=== PATIENT | female | born 1950 | race Caucasian/White ===

== ENCOUNTER 2017-04-21 12:36 | Emergency (ER) | payer MEDICARE, OTHER ==
[2017-04-21 12:58] VITALS: BP 136/70
[2017-04-21] MEDS ORDERED: Ketorolac 60 MG/2 ML SDV IM ONE (13:13)
--- NOTE | 2017-04-21 13:18 | EDM.PDOC ---
ED HPI GENERAL MEDICAL PROBLEM - General Chief Complaint: Head Injury Stated Complaint: FALL, FACIAL SCRAPES,CONTUSIONS Time Seen by Provider: 04/21/17 12:57 Source of Information: Reports: Patient, RN Notes Reviewed History Limitations: Reports: No Limitations - History of Present Illness INITIAL COMMENTS - FREE TEXT/NARRATIVE: 66-year-old female presents emergency department day following trauma, she had a fall to the ground where she tripped over the curb landed predominantly on the right side of her face. This incident occurred about an hour and a half ago there was no loss of consciousness no vomiting she is complaining of neck pain and facial pain predominately around her orbits and her jaw on the right side. Right Face Pain Score (Numeric/FACES): 7 - Related Data Allergies Allergy/AdvReac Type Severity Reaction Status Date / Time Penicillins Allergy Severe Hives Verified 06/13/13 11:11 amoxicillin [Amoxicillin] Allergy Rash Verified 02/01/14 14:06 Sulfa (Sulfonamide Allergy Rash Verified 02/01/14 14:06 Antibiotics) Tetracyclines Allergy Rash Verified 02/01/14 14:06 Home Meds: Home Meds Ca Cmb No.1/Vit D3/B-6/FA/B12 [Vitamin D3 1,000 Unit] 1 each PO DAILY 06/13/13 [ History] Fish Oil/[place]-3 Fatty Acids [Fish Oil] 1 each PO DAILY 06/13/13 [History] Escitalopram [Lexapro] 10 mg PO DAILY 04/19/16 [History] Hydrochlorothiazide 25 mg PO DAILY 04/19/16 [History] Psyllium Husk 1 gm PO DAILY 04/19/16 [History] Diphenoxylate HCl/Atropine [Diphenoxylate-Atrop 2.5-0.025] 1 tab PO DAILY [History] Past Medical History HEENT History: Reports: Impaired Vision Cardiovascular History: Reports: High Cholesterol Gastrointestinal History: Reports: GERD 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: , Spontaneous Musculoskeletal History: Reports: Fracture, Other (See Below) Other Musculoskeletal History: broke right arm july 2012; SI injections x2 Psychiatric History: Reports: Anxiety - Infectious Disease History Infectious Disease History: Reports: Chicken Pox, Measles, Shingles - Past Surgical History GI Surgical History: Reports: Colonoscopy, EGD Female Surgical History: Reports: Breast Biopsy, Tubal Ligation Social & Family History - Family History Family Medical History: Noncontributory - Tobacco Use Smoking Status *Q: Never Smoker Second Hand Smoke Exposure: No - Caffeine Use Caffeine Use: Reports: Coffee - Alcohol Use Days Per Week of Alcohol Use: 0 - Recreational Drug Use Recreational Drug Use: No ED ROS GENERAL - Review of Systems Review Of Systems: See Below Constitutional: Reports: No Symptoms HEENT: Reports: Nosebleed, Nose Pain, Other (Facial pain) Respiratory: Reports: No Symptoms Cardiovascular: Reports: No Symptoms GI/Abdominal: Reports: No Symptoms : Reports: No Symptoms Musculoskeletal: Reports: No Symptoms Skin: Reports: No Symptoms Neurological: Reports: No Symptoms ED EXAM, HEAD INJURY - Physical Exam Exam: See Below Text/Narrative:: General: Female, not in any distress, alert and oriented x3 HEENT: head is trauma is appreciated with abrasions under the right eye she does have an abrasion underneath the left naris and abrasion with edema and hematoma appreciated on the lower right portion lateral aspect of the lip normocephalic, eyes pupils equal round reactive to light, sclera clear no conjunctivitis appreciated, extraocular eye movements are intact. Ears tympanic membranes clear and burgess landmarks and light reflex are present bilaterally canals are clear. Nose no septal deviation, nares are clear, dried blood present. Mouth mucosa is moist and pink no erythema or exudate noted in soft palate, tongue is midline uvula is midline, dentition is intact. Neck: Supple no thyromegaly no tracheal deviation. There is tenderness to palpation both spinally and paraspinally Nodes: Cervical nodes subclavicular nodes nontender no palpable lymphadenopathy noted. Lungs: clear to auscultation bilaterally with symmetrical respirations, no adventitious noise appreciated. CV: Regular rate and rhythm S1 and S2 appreciated no murmurs rubs or gallops noted. Abdomen: Soft, nontender, no palpable masses or organomegaly appreciated, no distention no guarding bowel sounds are present. Neuro: Cranial nerves II through XII grossly intact Skin: Warm and dry, intact Extremities: No lower extremity edema appreciated, no tenderness at the shoulders elbows wrists bilaterally no tenderness at the pelvis, no tenderness at the knees or ankles bilaterally Course - Vital Signs Last Recorded V/S: Last Vital Signs Temp 97.2 F 04/21/17 12:58 Pulse 56 L 04/21/17 12:58 Resp 16 04/21/17 12:58 BP 136/70 04/21/17 12:58 Pulse Ox 98 04/21/17 12:58 - Orders/Labs/Meds Meds: Medications Discontinued Medications Generic Name Dose Route Start Last Admin Trade Name Casie PRN Reason Stop Dose Admin Ketorolac Tromethamine 60 mg 04/21/17 13:13 04/21/17 13:47 Toradol IM 04/21/17 13:14 60 mg ONETIME ONE Administration Departure - Departure Time of Disposition: 14:16 Disposition: Home, Self-Care 01 Condition: Good Clinical Impression: Contusion of face Qualifiers: Encounter type: initial encounter Qualified Code(s): S00.83XA - Contusion of other part of head, initial encounter - Discharge Information Referrals: Akua Lovelace PA [Primary Care Provider] - Forms: ED Department Discharge Additional Instructions: Use ibuprofen as needed for pain control, Please followup with your primary care provider in 3-5 days if not better, please call return to the emergency department with worsening of symptoms. - Assessment/Plan Plan: Assessment Acuity = acute Site and laterality = facial bone contusion right side Etiology = secondary to fall Manifestations = none Location of injury = Home Lab values = CT scan head, neck, facial bones all negative for any fracture Plan She had significant pain relief with Toradol provided she is going to use ibuprofen as needed follow-up primary care in 3-5 days if no improvement Patient was in agreement with the plan all questions were answered, they were instructed to return to the emergency department or call for worsening symptoms. This note was dictated using [employer] voice recognition software please call with any questions.
--- NOTE | 2017-04-21 13:53 | CT ---
Head wo Cont INDICATION: Trauma. COMPARISON: CT 02/22/2009. FINDINGS: No acute intracranial hemorrhage, mass, or edema. Mild generalized cerebral and cerebellar volume loss. Remainder unremarkable. IMPRESSION: No acute intracranial abnormality.
--- NOTE | 2017-04-21 14:01 | CT ---
Max Facial Sinus wo Cont Total DLP 1337 mGycm. INDICATION: pain, trauma COMPARISON: None. FINDINGS: No acute fracture. Temporomandibular joints are normally located. Trace mucosal thickening ethmoid sinuses anteriorly. Mastoid air cells are clear. Orbits are unremarkable. Minimal right perio rbital soft tissue swelling. Exam otherwise unremarkable. IMPRESSION: No acute fracture.
--- NOTE | 2017-04-21 14:03 | CT ---
Cervical Spine wo Cont INDICATION: Trauma. COMPARISON: None FINDINGS: No acute fracture or malalignment. Slight reversal of normal cervical lordosis. Mild multil evel degenerative changes including degenerative disc disease and uncovertebral and facet hypertrophy without significant neural foraminal or spinal canal narrowing. Soft tissues are negative. Remainder unremarkable. IMPRESSION: No acute fracture or malalignment.
== END 2017-04-21 14:21 | disposition home or self-care (01) ==
LOC: JP.ED 12:36
DX: S00.83XA Contusion of other part of head, initial encounter (principal); E78.00 Pure hypercholesterolemia, unspecified; K21.9 Gastro-esophageal reflux disease without esophagitis; F41.9 Anxiety disorder, unspecified; Z98.51 Tubal ligation status; Z98.890 Other specified postprocedural states; Z79.899 Other long term (current) drug therapy; Z88.0 Allergy status to penicillin; Z88.1 Allergy status to other antibiotic agents; Z88.2 Allergy status to sulfonamides; W01.0XXA Fall on same level from slipping, tripping and stumbling without subsequent striking against object, initial encounter
CPT/HCPCS: 70450; 70486; 72125; 96372; 99284; J1885

== ENCOUNTER 2018-09-07 14:08 | Emergency (ER) | payer MEDICARE ==
[2018-09-07 14:41] VITALS: BP 120/40
[2018-09-07] MEDS ORDERED: Meclizine 25 MG Tab PO ONE (15:04)
[2018-09-07] MEDS ORDERED: Ondansetron 4 MG Tab.DIS PO ONE (15:04)
--- NOTE | 2018-09-07 15:09 | EDM.PDOC ---
ED HPI GENERAL MEDICAL PROBLEM - General Chief Complaint: General Stated Complaint: SEVERE DIZZINESS, NAUSEA Time Seen by Provider: 09/07/18 14:55 Source of Information: Reports: Patient, RN Notes Reviewed History Limitations: Reports: No Limitations - History of Present Illness INITIAL COMMENTS - FREE TEXT/NARRATIVE: 67-year-old female presents to the emergency department today with complaint of dizziness, she states had the symptoms for about 48 hours it will wax and wane she describes it as room spinning and she is having difficulty ambulating feels like she is going to lose her balance, she is nauseated no fevers no shortness of breath or chest pain - Related Data Allergies Allergy/AdvReac Type Severity Reaction Status Date / Time Penicillins Allergy Severe Hives Verified 09/07/18 14:35 amoxicillin [Amoxicillin] Allergy Rash Verified 09/07/18 14:35 Sulfa (Sulfonamide Allergy Rash Verified 09/07/18 14:35 Antibiotics) Tetracyclines Allergy Rash Verified 09/07/18 14:35 Home Meds: Home Meds Ca Cmb No.1/Vit D3/B-6/FA/B12 [Vitamin D3 1,000 Unit] 1 each PO DAILY 06/13/13 [ History] Fish Oil/[place]-3 Fatty Acids [Fish Oil] 1 each PO DAILY 06/13/13 [History] Escitalopram [Lexapro] 10 mg PO DAILY 04/19/16 [History] Psyllium Husk 1 gm PO DAILY 04/19/16 [History] Diphenoxylate HCl/Atropine [Diphenoxylate-Atrop 2.5-0.025] 1 tab PO DAILY [History] Cholestyramine/Sucrose [Cholestyramine] 4 gm PO DAILY 09/07/18 [History] Past Medical History HEENT History: Reports: Impaired Vision Cardiovascular History: Reports: High Cholesterol Gastrointestinal History: Reports: GERD 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: , Spontaneous Musculoskeletal History: Reports: Fracture, Other (See Below) Other Musculoskeletal History: broke right arm july 2012; SI injections x2 Psychiatric History: Reports: Anxiety - Infectious Disease History Infectious Disease History: Reports: Chicken Pox, Measles, Mumps, Shingles - Past Surgical History Head Surgeries/Procedures: Reports: None HEENT Surgical History: Reports: Tonsillectomy Cardiovascular Surgical History: Reports: None GI Surgical History: Reports: Colonoscopy, EGD Female Surgical History: Reports: Breast Biopsy, Tubal Ligation Musculoskeletal Surgical History: Reports: None Dermatological Surgical History: Reports: None Social & Family History - Family History Family Medical History: Noncontributory - Tobacco Use Smoking Status *Q: Former Smoker Used Tobacco, but Quit: Yes Month/Year Tobacco Last Used: 1988 Second Hand Smoke Exposure: No - Caffeine Use Caffeine Use: Reports: Coffee - Recreational Drug Use Recreational Drug Use: No ED ROS GENERAL - Review of Systems Review Of Systems: See Below Constitutional: Reports: No Symptoms HEENT: Reports: Vertigo Respiratory: Reports: No Symptoms Cardiovascular: Reports: No Symptoms GI/Abdominal: Reports: Nausea : Reports: No Symptoms Musculoskeletal: Reports: No Symptoms Skin: Reports: No Symptoms Neurological: Reports: Dizziness ED EXAM, GENERAL - Physical Exam Exam: See Below Free Text/Narrative:: General: [ obease male, not in any distress], alert and oriented x3 HEENT: head is atraumatic normocephalic, eyes pupils equal round reactive to light, sclera clear no conjunctivitis appreciated. Ears tympanic membranes clear and burgess landmarks and light reflex are present bilaterally canals are clear. Nose no septal deviation, nares are clear, no blood present. Mouth mucosa is moist and pink no erythema or exudate noted in soft palate, tongue is midline uvula is midline, dentition is intact. Neck: Supple no thyromegaly no tracheal deviation. Nodes: Cervical nodes subclavicular nodes nontender no palpable lymphadenopathy noted. Lungs: clear to auscultation bilaterally with symmetrical respirations, no adventitious noise appreciated. CV: Regular rate and rhythm S1 and S2 appreciated no murmurs rubs or gallops noted. Cranial nerves II test with pupillary light reflex 4 mm to 2 mm bilaterally, CN III test pupillary constriction, lid elevation and eye abduction bilaterally, CN IV downward movement of eyes bilaterally, CN V good jaw movement, CN lateral deviation of the eyes bilaterally to finger movement, CN VII symmetrical smile shows teeth without difficulty, CN VIII pass finger rub to ears bilaterally, CN IX adequate voice and tone, CN X adequate voice and tone no difficulty swallowing, CN XI can shrug shoulders without difficulty, CN XII can stick tongue out without difficulty, cranial nerves II to XII intact as tested, power is 5 out 5 in upper and lower extremities, no dysdiadochokinesis , , has adequate gait but feels unsteady and starts to shift to a wide-based gait. Head impulse test: Negative loss of fixation with corrective saccades when head turned to the bilateral Nystagmus: unidirectional, horizontal 2 beats of horizontal nystagmus Skew deviation: grossly absent Course - Vital Signs Last Recorded V/S: Last Vital Signs Temp 96.8 F 09/07/18 14:38 Pulse 58 L 09/07/18 14:38 Resp 12 09/07/18 14:38 BP 120/40 L 09/07/18 14:38 Pulse Ox 97 09/07/18 14:38 - Orders/Labs/Meds Orders: Active Orders 24 hr Category Date Time Status Peripheral IV Care [RC] . DIRECTED Care 09/07/18 15:18 Active Ang Head [CT] Stat Exams 09/07/18 15:04 Ordered Iopamidol [Isovue-370 (76%)] Med 09/07/18 15:30 Active 100 ml IV . DIRECTED Sodium Chloride 0.9% [Normal Saline] 1,000 ml Med 09/07/18 15:30 Active IV ASDIRECTED Sodium Chloride 0.9% [Normal Saline] 100 ml Med 09/07/18 15:30 Active IV ASDIRECTED Sodium Chloride 0.9% [Saline Flush] Med 09/07/18 15:18 Active 10 ml FLUSH ASDIRECTED PRN Peripheral IV Insertion Adult [OM.PC] Urgent Oth 09/07/18 15:18 Ordered Medication Orders Sodium Chloride (Normal Saline) 1,000 mls @ 500 mls/hr IV ASDIRECTED CHANDANA Last Admin: 09/07/18 15:59 Dose: 500 mls/hr Sodium Chloride (Normal Saline) 100 mls @ 3 mls/sec IV ASDIRECTED CHANDANA Last Admin: 09/07/18 15:59 Dose: 3 mls/sec Iopamidol (Isovue-370 (76%)) 100 ml IV . DIRECTED CHANDANA Last Admin: 09/07/18 15:59 Dose: 100 ml Sodium Chloride (Saline Flush) 10 ml FLUSH ASDIRECTED PRN PRN Reason: Keep Vein Open Labs: Laboratory Tests 09/07/18 09/07/18 Range/Units 15:15 15:15 WBC 7.8 (4.5-11.0) K/uL RBC 4.21 (3.30-5.50) M/uL Hgb 12.5 (12.0-15.0) g/dL Hct 38.6 (36.0-48.0) % MCV 92 (80-98) fL MCH 30 (27-31) pg MCHC 32 (32-36) % Plt Count 310 (150-400) K/uL Neut % (Auto) 44 (36-66) % Lymph % (Auto) 46 H (24-44) % [place] % (Auto) 7 H (2-6) % Eos % (Auto) 3 (2-4) % Baso % (Auto) 1 (0-1) % Sodium 142 (140-148) mmol/L Potassium 4.0 (3.6-5.2) mmol/L Chloride 105 (100-108) mmol/L Carbon Dioxide 30 (21-32) mmol/L Anion Gap 7.2 (5.0-14.0) mmol/L BUN 11 (7-18) mg/dL Creatinine 0.7 (0.6-1.0) mg/dL Est Cr Clr Drug Dosing 70.18 mL/min Estimated GFR (MDRD) > 60 (>60) Glucose 101 (74-106) mg/dL Calcium 9.2 (8.5-10.1) mg/dL Meds: Medications Generic Name Dose Route Start Last Admin Trade Name Freq PRN Reason Stop Dose Admin Sodium Chloride 1,000 mls @ 500 mls/hr 09/07/18 15:30 09/07/18 15:59 Normal Saline IV 500 mls/hr ASDIRECTED CHANDANA Administration Sodium Chloride 100 mls @ 3 mls/sec 09/07/18 15:30 09/07/18 15:59 Normal Saline IV 3 mls/sec ASDIRECTED CHANDANA Administration Iopamidol 100 ml 09/07/18 15:30 09/07/18 15:59 Isovue-370 (76%) IV 100 ml . DIRECTED CHANDANA Administration Sodium Chloride 10 ml 09/07/18 15:18 Saline Flush FLUSH ASDIRECTED PRN Keep Vein Open Discontinued Medications Generic Name Dose Route Start Last Admin Trade Name Freq PRN Reason Stop Dose Admin Meclizine HCl 25 mg 09/07/18 15:04 09/07/18 15:58 Antivert PO 09/07/18 15:05 25 mg ONETIME ONE Administration Ondansetron HCl 4 mg 09/07/18 15:04 09/07/18 15:58 Zofran Odt PO 09/07/18 15:05 4 mg ONETIME ONE Administration Sodium Chloride 10 ml 09/07/18 15:23 09/07/18 15:30 Saline Flush FLUSH 09/07/18 15:24 10 ml ONETIME ONE Administration Departure - Departure Time of Disposition: 16:38 Disposition: Home, Self-Care 01 Condition: Fair Clinical Impression: Dizziness - Discharge Information Referrals: Akua Lovelace PA [Primary Care Provider] - Forms: ED Department Discharge Additional Instructions: Use meclizine as needed to control dizziness symptoms, Please followup with your primary care provider in 3-5 days if not better, please call return to the emergency department with worsening of symptoms. - My Orders Last 24 Hours: My Active Orders 09/07/18 15:04 Ang Head [CT] Stat 09/07/18 15:18 Peripheral IV Care [RC] . DIRECTED Sodium Chloride 0.9% [Saline Flush] 10 ml FLUSH ASDIRECTED PRN Peripheral IV Insertion Adult [OM.PC] Urgent 09/07/18 15:30 Iopamidol [Isovue-370 (76%)] 100 ml IV . DIRECTED Sodium Chloride 0.9% [Normal Saline] 1,000 ml IV ASDIRECTED Sodium Chloride 0.9% [Normal Saline] 100 ml IV ASDIRECTED - Assessment/Plan Last 24 Hours: My Active Orders 09/07/18 15:04 Ang Head [CT] Stat 09/07/18 15:18 Peripheral IV Care [RC] . DIRECTED Sodium Chloride 0.9% [Saline Flush] 10 ml FLUSH ASDIRECTED PRN Peripheral IV Insertion Adult [OM.PC] Urgent 09/07/18 15:30 Iopamidol [Isovue-370 (76%)] 100 ml IV . DIRECTED Sodium Chloride 0.9% [Normal Saline] 1,000 ml IV ASDIRECTED Sodium Chloride 0.9% [Normal Saline] 100 ml IV ASDIRECTED Plan: Assessment Acuity = acute Site and laterality = dizziness Etiology = unclear etiology Manifestations = nausea Location of injury = Home Lab values = CBC, CMP, and she'll head all negative Plan She had good relief with combination Zofran and meclizine discharge home with meclizine 25 mg by mouth 3 times a day when necessary total #100 follow-up with primary care 3-5 days no improvement This note was dictated using [employer] voice recognition software please call with any questions on syntax or grammar.
[2018-09-07] MEDS ORDERED: Sodium Chloride 0.9% 10 ML Syringe FLUSH PRN (15:18)
[2018-09-07] MEDS ORDERED: Sodium Chloride 0.9% 10 ML Syringe FLUSH ONE (15:23)
[2018-09-07] MEDS ORDERED: Sodium Chloride 0.9% 100 ML IV SCH (15:30)
[2018-09-07] MEDS ORDERED: Sodium Chloride 0.9% 1,000 ML IV SCH (15:30)
[2018-09-07] MEDS ORDERED: Iopamidol 755 Mg/ML 100 ML Bottle IV SCH (15:30)
== END 2018-09-07 16:51 | disposition home or self-care (01) ==
LOC: JP.ED 14:08
DX: R42 Dizziness and giddiness (principal); E78.00 Pure hypercholesterolemia, unspecified; K21.9 Gastro-esophageal reflux disease without esophagitis; Z88.0 Allergy status to penicillin; Z88.2 Allergy status to sulfonamides; Z88.1 Allergy status to other antibiotic agents; Z79.899 Other long term (current) drug therapy; Z87.891 Personal history of nicotine dependence
CPT/HCPCS: 36415; 70496; 80048; 85025; 96360; 99284; A9270; J7030; Q9967

== ENCOUNTER 2021-07-24 06:18 | Day surgery (SDC) | payer MEDICARE ==
[2021-07-24] MEDS ORDERED: Sodium Chloride 0.9% 1,000 ML IV SCH (07:00)
[2021-07-24] MEDS ORDERED: Propofol 200 MG/20 ML SDV ONE (07:25)
[2021-07-24] MEDS ORDERED: fentaNYL 100 MCG/2 ML SDV ONE (07:26)
[2021-07-24] MEDS ORDERED: Midazolam 1 MG/ML 2 ML SDV ONE (07:26)
[2021-07-24 08:58] VITALS: PULSE 63
[2021-07-24 09:22] VITALS: BP 131/66
--- NOTE | 2021-07-24 09:32 | OR ---
DATE OF PROCEDURE: 07/24/2021 SURGEON: Scott Juan MD PROCEDURE: Colonoscopy. FINDINGS: Sigmoid colon polyp, approximately 8 mm, completely removed using hot snare wire device. COMPLICATIONS: None. PROMOS EXECUTIVE PRODUCER: None. ANESTHESIA: MAC. PREOPERATIVE DIAGNOSIS: Screening colonoscopy. POSTOPERATIVE DIAGNOSIS: Screening colonoscopy. RISKS: Risks, benefits, alternatives, and limitations including, but not limited to infection, bleeding, perforation, false positives, and false negatives were explained to the patient and she wished to proceed. PROCEDURE IN DETAIL: The patient was placed in left lateral decubitus position. Digital rectal exam was performed without abnormality. The scope was introduced and advanced atraumatically to the ileocecal valve. A photo was taken. The scope was brought back to the ascending, transverse, descending colon, and retroflexed. Within the sigmoid colon, the aforementioned polyp was identified and completely removed using hot snare wire device. No abnormalities on retroflexion. Greater than 8 minutes was spent removing the scope. Prep was acceptable, approximately 90% of the luminal surface could be seen. The patient tolerated the procedure well. Scott Juan MD /[id number]
== END 2021-07-24 09:30 | disposition home or self-care (01) ==
LOC: JP.SDS 06:18
PROVIDERS: ATTEND Surgery
DX: Z12.11 Encounter for screening for malignant neoplasm of colon (principal); D12.5 Benign neoplasm of sigmoid colon; K21.9 Gastro-esophageal reflux disease without esophagitis; E66.9 Obesity, unspecified; Z88.0 Allergy status to penicillin; Z88.2 Allergy status to sulfonamides; Z88.8 Allergy status to other drugs, medicaments and biological substances
CPT/HCPCS: 45385; J2250; J2704; J3010; J7030